=== PATIENT | male | born 1940 | race Caucasian/White ===

== ENCOUNTER → 2019-11-28 13:36 | Outpatient (CLI) | payer MEDICARE, BC, SELFPAY | PROVIDERS: PCP Family Medicine; Visit Provider Family Medicine | DX: G47.33 Obstructive sleep apnea (adult) (pediatric) (principal); R06.83 Snoring | CPT/HCPCS: G0399 ==

== ENCOUNTER → 2023-08-10 09:44 | Outpatient (CLI) | payer MEDICARE, BC, SELFPAY ==
--- NOTE | 2023-08-10 09:48 | CA_ITS ---
APPROVED REPORT EXAM: Comprehensive 2D, Doppler, and color-flow Echocardiogram Wellness Manager: Malinda Daily RDCS Ht: 5 ft 9 in Wt: 195lbs BSA: 2.04 BP: 122/78 mmHg Indications: apnea,jay 2D Dimensions LVOT 1.92 cm (M/F) 1.5-2.5 M-Mode Dimensions RVDd 1.90 cm (0.9-2.6) LA Diam 3.80 cm (1.9-4.0) LVDd 5.62 cm (3.5-5.7) Ao Diam 3.84 cm (2.0-3.7) LVDs 3.90 cm (3.5-5.7) IVSd 0.79 cm (0.6-1.1) PWd 0.86 cm (0.6-1.1) EF (Teich) 57.50% EPSs 3.91 cm FS 30.60% EDV (Teich) 154.90 mL TAPSE 2.17 (<1.7) ESV (Teich) 65.90 mL LV Diastology E Decel Time 157.00 (160-240 msec) E/A Ratio 0.9 MED E' 7.50 (< 7 cm/sec) E'/MED E' Ratio 8.03 (>14) LAT E' 6.00 (<10 cm/sec) E/LAT E' Ratio 10.03 (>14) Aortic Valve AI PHT 276.00 ms Mitral Valve MV E Max Sb. 60.00 (40-130 cm/s) MV A Velocity 67.00 (40-130 cm/s) E/A Ratio 0.89 MV Decel. Time 157.00 (160-240 ms) MV PHT 46.00 ms Left Ventricle The left ventricle is normal size. The left ventricular systolic function is normal. The left ventricular ejection fraction is within the normal range. There is normal left ventricular wall thickness. There is normal LV segmental wall motion. The left ventricular diastolic function is normal. LVEF is 55%. Right Ventricle The right ventricle is normal size. The right ventricular systolic function is normal. Atria The left atrium size is normal. The right atrium size is normal. There is no Doppler evidence of interatrial shunt. Aortic Valve The aortic valve is mildly thickened. There is no aortic valvular stenosis. Mild aortic regurgitation. Mitral Valve The mitral valve leaflets are mildly thickened. No evidence of mitral valve stenosis. Trace mitral regurgitation. Tricuspid Valve The tricuspid valve leaflets are thin and pliable. Trace tricuspid regurgitation. There is insufficient TR jet to estimate RVSP. Pulmonic Valve The pulmonary valve is normal in structure. Trace pulmonic regurgitation. Great Vessels The aortic root is normal in size. The ascending aorta is mildly dilated, measuring 3.9 cm in diameter. IVC is normal in size and collapses >50% with inspiration. Pericardium There is no pericardial effusion. Other Information Study Quality: Fair Conclusion Normal biventricular systolic function. No significant valvular stenosis or regurgitation. Mildly dilated ascending aorta, measuring 3.9 cm in diameter. Electronically signed by : Duyen Raygoza MD 08/12/2023 19:59:06
== END ==
PROVIDERS: PCP Family Medicine; Visit Provider Nurse Practitioner Family
DX: G47.30 Sleep apnea, unspecified (principal)
CPT/HCPCS: 93306